=== PATIENT | male | born 1980 | race Caucasian/White ===

== ENCOUNTER 2024-07-12 15:56 | Inpatient (IN) | payer MEDICAID, SELFPAY ==
[2024-07-12 16:03] VITALS: BP 172/89; PULSE 65; RESP 18; TEMP 36.6; O2SAT 100; BMI 38.8
--- NOTE | 2024-07-12 16:21 | W.ED.GENADLT ---
HPI - General Adult General: Chief complaint: General Medical Stated complaint: med reaction Time Seen by Provider: 07/12/24 15:57 History of Present Illness: 44-year-old male presents emergency room with concerns of medication reaction. Patient has a known history of alcoholic liver cirrhosis was recently hospitalized had been started on lactulose. Hospitalized at [place] he states he has been taking all of his medications but not had a bowel movement the last 6 days denies any fever sweats or chills he is very very confused and disorientated contribute a lot of this to his medications. He is a former heavy drinker states he quit 20 to 21 days ago. Associated symptoms: Reports nausea; Deny chest pain, dyspnea, rash or vomiting Related Data Home Medications ?Medication ?Instructions ?Recorded ?Confirmed amlodipine 5 mg tablet 5 mg PO DAILY 07/12/24 07/12/24 bumetanide 1 mg tablet 1 mg PO DAILY 07/12/24 07/12/24 bumetanide 2 mg tablet 2 mg PO DAILY 07/12/24 07/12/24 carvedilol 3.125 mg tablet 3.125 mg PO BID 07/12/24 07/12/24 citalopram 20 mg tablet 20 mg PO DAILY 07/12/24 07/12/24 escitalopram oxalate 20 mg tablet 20 mg PO DAILY 07/12/24 07/12/24 ferrous sulfate 325 mg (65 mg 325 mg PO DAILY 07/12/24 07/12/24 iron) tablet (FeroSul) folic acid 1 mg tablet 1 mg PO DAILY 07/12/24 07/12/24 furosemide 80 mg tablet 80 mg PO DAILY 07/12/24 07/12/24 gabapentin 300 mg capsule 600 mg PO TID 07/12/24 07/12/24 magnesium oxide 400 mg (241.3 mg 400 mg PO BID 07/12/24 07/12/24 magnesium) tablet multivitamin 1 tab PO DAILY 07/12/24 07/12/24 naltrexone 50 mg tablet 50 mg PO DAILY 07/12/24 07/12/24 nifedipine 30 mg tablet,extended 30 mg PO DAILY 07/12/24 07/12/24 release 24 hr omeprazole 20 mg capsule,delayed 20 mg PO DAILY 07/12/24 07/12/24 release pantoprazole 40 mg tablet,delayed 40 mg PO DAILY 07/12/24 07/12/24 release potassium chloride 20 mEq 20 meq PO DAILY 07/12/24 07/12/24 tablet,extended release rifaximin 550 mg tablet (Xifaxan) 550 mg PO BID 07/12/24 07/12/24 risperidone 1 mg tablet 1 mg PO BID 07/12/24 07/12/24 spironolactone 25 mg tablet 100 mg PO DAILY 07/12/24 07/12/24 sucralfate 1 gram tablet 1 g PO BID 07/12/24 07/12/24 thiamine HCl (vitamin B1) 100 mg 100 mg PO DAILY 07/12/24 07/12/24 tablet trazodone 100 mg tablet 100 mg PO QPM 07/12/24 07/12/24 zinc sulfate 50 mg zinc (220 mg) 50 mg PO DAILY 07/12/24 07/12/24 tablet Allergies Allergy/AdvReac Type Severity Reaction Status Date / Time No Known Allergies Allergy Verified 07/12/24 16:09 Review of Systems Const: Denies: fever(s) or chills Card: Denies: chest pain Resp: Denies: dyspnea GI: Reports: nausea and constipation; Denies: abdominal pain or vomiting : Denies: dysuria, urinary frequency or urinary urgency Musc: Denies: neck pain or back pain Skin/Breast: Denies: rash Physical Exam Const: GENERAL APPEARANCE: cooperative ORIENTATION/CONSCIOUSNESS: Yes awake HENMT: COMMON NORMALS: normocephalic, atraumatic and hearing grossly normal bilaterally HEAD & SCALP: normocephalic and atraumatic Resp: COMMON NORMALS: normal respiratory effort, No retractions, No use of accessory muscles and clear to auscultation bilaterally AUSCULTATION: clear to auscultation bilaterally Cardio: COMMON NORMALS: regular rate, regular rhythm and No murmurs present (Cardio) RATE: regular rate RHYTHM: regular rhythm GI: INSPECTION: Yes abdominal distension AUSCULTATION: Yes normoactive bowel sounds PALPATION: No Tenderness to palpation present (GI), No Guarding due to palpation present (GI) and Yes Hepatomegaly present Extremity: COMMON NORMALS: normal to inspection, capillary refill normal, no clubbing, cyanosis or edema, no calf tenderness and no pedal edema NARRATIVE EXTREMITY EXAM: Asterixis Skin: COMMON NORMALS: no rashes or lesions noted GENERAL SKIN EXAM: no rashes or lesions noted Course Vital Signs: Vital signs: Vital Signs Temperature 97.8 F 07/12/24 16:03 Pulse Rate 65 07/12/24 16:03 Respiratory Rate 18 07/12/24 16:03 Blood Pressure 172/89 07/12/24 16:03 Pulse Oximetry 100 07/12/24 16:03 Oxygen Delivery Me thod Room Air 07/12/24 16:03 MDM - General Adult Medical Decision Making Patient has hepatic encephalopathy with an ammonia level of 179. He does have asterixis. He is also thrombocytopenic and anemic. T. bili is 1.9 mild elevation of his AST he had recent hospitalization in [place] will attempt to get the old records there is no sign of active bleeding discussed with hospitalist orders written Medical Records I reviewed the patient's medical records. Lab Data I reviewed the patient's lab results. 07/12/24 16:55 07/12/24 16:55 Radiology Impressions Chest X-Ray 07/12/24 16:59 IMPRESSION: No acute findings. Laboratory Results WBC 4.49 10^3/uL (3.29-11.43) 07/12/24 16:55 RBC 3.17 10^6/uL (3.85-5.65) L 07/12/24 16:55 Hgb 9.20 g/dL (11.27-16.99) L 07/12/24 16:55 Hct 28.6 % (37-53) L 07/12/24 16:55 MCV 90.2 fl (82-101) 07/12/24 16:55 MCH 29.0 pg (27-33) 07/12/24 16:55 MCHC 32.2 g/dL (30-55) 07/12/24 16:55 RDW 19.3 % (12.1-15.1) H 07/12/24 16:55 Plt Count 68 10^3/cmm (157-399) L 07/12/24 16:55 MPV Not Reportable 07/12/24 16:55 Neut % (Auto) 65.1 % 07/12/24 16:55 Lymph % (Auto) 18.5 % 07/12/24 16:55 [place] % (Auto) 13.4 % 07/12/24 16:55 Eos % (Auto) 2.4 % 07/12/24 16:55 Baso % (Auto) 0.4 % 07/12/24 16:55 Neut # (Auto) 2.92 10^3/uL (1.8-7.7) 07/12/24 16:55 Lymph # (Auto) 0.8 10^3/uL (0.8-4.8) 07/12/24 16:55 [place] # (Auto) 0.6 10^3/uL (0.2-0.9) 07/12/24 16:55 Eos # (Auto) 0.1 10^3/uL (0.0-0.8) 07/12/24 16:55 Baso # (Auto) 0.0 10^3/uL (0.0-0.1) 07/12/24 16:55 Nucleated RBC % (auto) 0 % 07/12/24 16:55 Nucleated RBCs # 0.0 /100WBC 07/12/24 16:55 Sodium 136 mmol/L (136-145) 07/12/24 16:55 Potassium 3.6 mmol/L (3.5-5.1) 07/12/24 16:55 Chloride 106 mmol/L (98-107) 07/12/24 16:55 Carbon Dioxide 22 mmol/L (22-29) 07/12/24 16:55 Anion Gap 11.6 (5-19) 07/12/24 16:55 BUN 11 mg/dL (6-20) 07/12/24 16:55 Creatinine 0.5 mg/dL (0.7-1.2) L 07/12/24 16:55 GFR Calculation 181.5 mL/min (90-130) H 07/12/24 16:55 Glucose 87 mg/dL (65-115) 07/12/24 16:55 Calculated Osmolality 281 mOsm/kg (285-295) L 07/12/24 16:55 Calcium 8.3 mg/dL (8.5-10.5) L 07/12/24 16:55 Total Bilirubin 1.9 mg/dL (0.15-1.2) H 07/12/24 16:55 AST 44 U/L (0-40) H 07/12/24 16:55 ALT 21 U/L (0-41) 07/12/24 16:55 Alkaline Phosphatase 121 U/L (40-130) 07/12/24 16:55 Ammonia 179 umol/L (16-60) H 07/12/24 16:55 Total Protein 5.6 g/dL (6.6-8.7) L 07/12/24 16:55 Albumin 2.9 g/dL (3.5-5.2) L 07/12/24 16:55 Globulin 2.7 g/dL (1.3-4.6) 07/12/24 16:55 Lipase 50 U/L (13-60) 07/12/24 16:55 All radiology interpretation(s) finalized by discharge Discharge Plan Discharge Patient Disposition: Admitted As Inpatient Clinical Impression: Acute hepatic encephalopathy, Anemia, Thrombocytopenia, Alcoholic cirrhosis of liver Condition: Stable Coding Level of Care Code ED Finance Broker for Gaurav Maradiaga
--- NOTE | 2024-07-12 16:59 | XRR_ITS ---
PROCEDURE INFORMATION: Exam: XR Chest Exam date and time: 07/12/2024 5:06 PM Age: 44 years old Clinical indication: Cough and dyspnea; Additional info: Dyspnea/cough TECHNIQUE: Imaging protocol: Radiologic exam of the chest. Views: 1 view. COMPARISON: No relevant prior studies available. FINDINGS: Lungs: Unremarkable. No consolidation. Pleural spaces: Unremarkable. No pleural effusion. No pneumothorax. Heart/Mediastinum: Unremarkable. No cardiomegaly. Bones/joints: Unremarkable. XR/XR chest 1V portable [id number] IMPRESSION: No acute findings.
[2024-07-12 17:05] LABS: Basophils % 0.4 %; Eosinophils # 0.1 10^3/uL (0.0-0.8); Eosinophils % 2.4 %; Hematocrit 28.6 % (37-53); Lymphocytes # 0.8 10^3/uL (0.8-4.8); Lymphocytes % 18.5 %; Mean Corpuscular HGB Conc 32.2 g/dL (30-55); Mean Corpuscular Volume 90.2 fl (82-101); Monocytes # 0.6 10^3/uL (0.2-0.9); Monocytes % 13.4 %; Neutrophils # 2.92 10^3/uL (1.8-7.7); Neutrophils % 65.1 %; Nucleated Red Blood Cells % 0 %; Platelet Count 68 10^3/cmm (157-399); Red Blood Count 3.17 10^6/uL (3.85-5.65); Red Cell Distribution Width 19.3 % (12.1-15.1); White Blood Count 4.49 10^3/uL (3.29-11.43)
--- NOTE | 2024-07-12 17:17 | ECG_ITS ---
[facility] Test Date: 2024-07-12 Pat Name: Dar Malone Department: Room: Gender: Male Education Supervisor: : 1980 Requested By: Nayan Adler Order Number: [id number] Elio MD: Jaron Caraballo M.D. Measurements Intervals [place] Rate: 75 P: 8 OH: 189 QRS: -5 QRSD: 96 T: -7 QT: 452 QTc: 506 Interpretive Statements SINUS RHYTHM PROLONGED QT INTERVAL No previous ECG available for comparison Electronically Signed On 07-14-2024 18:03:54 PASTE UP COPY CAMERA OPERATOR by Jaron Caraballo M.D. [email or web address]
[2024-07-12 17:26] LABS: Slide Review Slide Review Perform
[2024-07-12 17:34] LABS: Ammonia 179 umol/L (16-60)
[2024-07-12 17:35] LABS: Alanine Aminotransferase 21 U/L (0-41); Albumin Level 2.9 g/dL (3.5-5.2); Alkaline Phosphatase 121 U/L (40-130); Anion Gap 11.6 (5-19); Aspartate Amino Transferase 44 U/L (0-40); Blood Urea Nitrogen 11 mg/dL (6-20); Calcium 8.3 mg/dL (8.5-10.5); Carbon Dioxide 22 mmol/L (22-29); Chloride 106 mmol/L (98-107); Globulin 2.7 g/dL (1.3-4.6); Glomerular Filtration Rate 181.5 mL/min (90-130); Glucose 87 mg/dL (65-115); Lipase 50 U/L (13-60); Osmolality Calculated 281 mOsm/kg (285-295); Potassium 3.6 mmol/L (3.5-5.1); Sodium 136 mmol/L (136-145); Total Bilirubin 1.9 mg/dL (0.15-1.2); Total Protein 5.6 g/dL (6.6-8.7)
[2024-07-12 18:13] VITALS: BP 159/80; O2SAT 97
[2024-07-12 18:14] LABS: NT Pro B Type Natriuretic Pept 170 pg/mL (0-125)
--- NOTE | 2024-07-12 18:19 | CTR_ITS ---
PROCEDURE INFORMATION: Exam: CT Abdomen And Pelvis Without Contrast Exam date and time: 07/12/2024 7:05 PM Age: 44 years old Clinical indication: Bloating and constipation and nausea and vomiting and other: Swelling; Prior surgery; Surgery date: 6+ months; Surgery type: Gb/appy; Additional info: Abdominal distention TECHNIQUE: Imaging protocol: Computed tomography of the abdomen and pelvis without contrast. Radiation optimization: All CT scans at this facility use at least one of these dose optimization techniques: automated exposure control; mA and/or kV adjustment per patient size (includes targeted exams where dose is matched to clinical indication); or iterative reconstruction. COMPARISON: CR XR chest 1V portable [id number] 07/12/2024 5:06 PM RADIATION DOSE METRICS: Total DLP (mGy-cm): 1202.38 FINDINGS: Pleural spaces: Small to moderate-sized right-sided pleural effusion. Liver: There is a TIPS in place. Cirrhotic liver. Gallbladder and biliary ducts: The gallbladder is absent. Pancreas: Normal. No ductal dilation. Spleen: The spleen is enlarged measuring up to 14.3 cm in craniocaudal dimension. Adrenal glands: Normal. No mass. Kidneys and ureters: Normal. No hydronephrosis. Stomach and bowel: Unremarkable. No obstruction. No mucosal thickening. Appendix: The appendix is not visualized but there are no secondary signs of acute appendicitis. Intraperitoneal space: Unremarkable. No free air. No significant fluid collection. Vasculature: Extensive vascular varices in the upper abdomen. Lymph nodes: Unremarkable. No enlarged lymph nodes. Urinary bladder: Unremarkable as visualized. Reproductive: Unremarkable as visualized. Bones/joints: Unremarkable. No acute fracture. Soft tissues: Anasarca. CT/CT abdomen pelvis con [id number] IMPRESSION: 1. Small to moderate-sized right-sided pleural effusion. 2. Cirrhotic liver. Splenomegaly with upper abdominal varices consistent with portal hypertension. 3. Anasarca. 4. No bowel obstruction or inflammatory process associated with the bowel. 5. No free air or significant free fluid in the abdomen or pelvis. 6. The appendix is not visualized but there are no secondary signs of acute appendicitis.
--- NOTE | 2024-07-12 18:20 | ECG_ITS ---
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 Measurements Intervals [place] Rate: 73 P: -1 AR: 184 QRS: 3 QRSD: 101 T: -1 QT: 434 QTc: 481 Interpretive Statements SINUS RHYTHM Compared to ECG 07/12/2024 17:17:30 Prolonged QT interval no longer present Electronically Signed On 07-14-2024 18:03:47 APPLIQUER by Jaron Caraballo M.D. [email or web address] [id number]
--- NOTE | 2024-07-12 18:22 | PM.HP ---
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 Currently he is alert to person, to place and not to time he can follow commands his response times are quite slow, requires frequent redirection, reports being confused about his medications, does report nausea, no vomiting, no lightheadedness, no dizziness, Review of Systems Const: Reports: fatigue and malaise; Denies: fever(s) or chills Card: Denies: chest pain Resp: Reports: dyspnea GI: Reports: abdominal pain and nausea : Denies: flank pain Neuro: Denies: headache(s) Medications/Allergies Home Medications ?Medication ?Instructions ?Recorded ?Confirmed ?Last Taken ?Type amlodipine 5 mg tablet 5 mg PO DAILY 07/12/24 07/12/24 Unknown History bumetanide 1 mg tablet 1 mg PO DAILY 07/12/24 07/12/24 Unknown History bumetanide 2 mg tablet 2 mg PO DAILY 07/12/24 07/12/24 Unknown History carvedilol 3.125 mg tablet 3.125 mg PO BID 07/12/24 07/12/24 Unknown History citalopram 20 mg tablet 20 mg PO DAILY 07/12/24 07/12/24 Unknown History escitalopram oxalate 20 mg tablet 20 mg PO DAILY 07/12/24 07/12/24 Unknown History ferrous sulfate 325 mg (65 mg 325 mg PO DAILY 07/12/24 07/12/24 Unknown History iron) tablet (FeroSul) folic acid 1 mg tablet 1 mg PO DAILY 07/12/24 07/12/24 Unknown History furosemide 80 mg tablet 80 mg PO DAILY 07/12/24 07/12/24 Unknown History gabapentin 300 mg capsule 600 mg PO TID 07/12/24 07/12/24 Unknown History magnesium oxide 400 mg (241.3 mg 400 mg PO BID 07/12/24 07/12/24 Unknown History magnesium) tablet multivitamin 1 tab PO DAILY 07/12/24 07/12/24 Unknown History naltrexone 50 mg tablet 50 mg PO DAILY 07/12/24 07/12/24 Unknown History nifedipine 30 mg tablet,extended 30 mg PO DAILY 07/12/24 07/12/24 Unknown History release 24 hr omeprazole 20 mg capsule,delayed 20 mg PO DAILY 07/12/24 07/12/24 Unknown History release pantoprazole 40 mg tablet,delayed 40 mg PO DAILY 07/12/24 07/12/24 Unknown History release potassium chloride 20 mEq 20 meq PO DAILY 07/12/24 07/12/24 Unknown History tablet,extended release rifaximin 550 mg tablet (Xifaxan) 550 mg PO BID 07/12/24 07/12/24 Unknown History risperidone 1 mg tablet 1 mg PO BID 07/12/24 07/12/24 Unknown History spironolactone 25 mg tablet 100 mg PO DAILY 07/12/24 07/12/24 Unknown History sucralfate 1 gram tablet 1 g PO BID 07/12/24 07/12/24 Unknown History thiamine HCl (vitamin B1) 100 mg 100 mg PO DAILY 07/12/24 07/12/24 Unknown History tablet trazodone 100 mg tablet 100 mg PO QPM 07/12/24 07/12/24 Unknown History zinc sulfate 50 mg zinc (220 mg) 50 mg PO DAILY 07/12/24 07/12/24 Unknown History tablet Allergies Allergy/AdvReac Type Severity Reaction Status Date / Time No Known Allergies Allergy Verified 07/12/24 16:09 PFSH Acute PFSH: Medical History (Updated 07/12/24 @ 18:30 by Joe Varghese MD) History of esophageal varices History of alcoholism Surgical History (Updated 07/12/24 @ 18:25 by Joe Varghese MD) History of esophagogastroduodenoscopy (EGD) Family History (Updated 07/12/24 @ 18:26 by Joe Varghese MD) Mother Chronic kidney disease (CKD) Father Chronic kidney disease (CKD) Social History (Updated 07/12/24 @ 18:26 by Joe Varghese MD) Smoking and tobacco/nicotine status: never used tobacco/nicotine Alcohol intake: former Substance/Drug Use: never Vitals/I&O/Wt Last Vital Signs Temp 97.8 F 07/12/24 16:03 Pulse 65 07/12/24 16:03 Resp 18 07/12/24 16:03 BP 159/80 07/12/24 18:13 Pulse Ox 97 07/12/24 18:13 O2 Del Method Room Air 07/12/24 18:13 Weight last 48 hrs Weight 142.882 kg Physical Exam Const: COMMON NORMALS: no acute distress ORIENTATION/CONSCIOUSNESS: Yes awake, Yes oriented to person, Yes oriented to place and Yes confused; not oriented to time Eye: COMMON NORMALS: Equal, round and reactive pupils present Resp: COMMON NORMALS: normal respiratory effort, No retractions, No use of accessory muscles and clear to auscultation bilaterally AUSCULTATION: clear to auscultation bilaterally Cardio: COMMON NORMALS: no JVD, regular rate, regular rhythm, S1 normal heart sound present and S2 normal heart sound present RATE: regular rate RHYTHM: regular rhythm HEART SOUNDS: S1 normal heart sound present and S2 normal heart sound present GI: OTHER: Abdomen is soft, distended, no guarding, no rebound, rigidity Neuro: COMMON NORMALS: CN's II-XII intact bilaterally and moves all extremities Data 07/12/24 16:55 07/12/24 16:55 A&P Assessment and plan (1) Acute hepatic encephalopathy: (2) Alcoholic cirrhosis of liver: (3) Bilateral lower extremity edema: (4) Constipation: Plan Hepatic encephalopathy, ammonia level is 179 -Continue rifaximin -Lactulose 20 g every 6 hours -Monitor ammonia levels -Neurochecks -Aspiration precautions -CT head Complaints of constipation -CT abdomen without contrast -Lactulose Bilateral extremity edema -Lasix therapy Alcoholic liver cirrhosis -With acute anemia hemoglobin 9.2 -With thrombocytopenia -History of esophageal varices requiring band ligation -CT scan abdomen pelvis -CRP, Pro-Juan, blood cultures -He reports a history of paracentesis -Will start Rocephin 2 g IV every 24 hours for possible SBP Full code SCDs for DVT prophylaxis, Lovenox relatively contraindicated given history of esophageal varices PDMP PDMP Reviewed: Last Reviewed 07/12/24 18:11 by Joe Varghese MD Attestations Medical Necessity Statement*: Patient requires hospitalization, inpatient, greater than 2 midnights, for hepatic encephalopathy, weakness, fatigue, bilateral extremity edema Diagnoses Acute hepatic encephalopathy K76.82 Alcoholic cirrhosis of liver K70.30 Bilateral lower extremity edema R60.0 Constipation K59.00
[2024-07-12 18:28] LABS: Bilirubin Urine Negative (Negative); Blood Urine 1+ (Negative); Glucose Urine UA Negative (Normal); Ketones Urine Negative (Negative); Leukocyte Esterase Urine Negative (Negative); Nitrate Urine Negative (Negative); Protein Urine Negative (Negative); Specific Gravity, Urine 1.013 (1.005-1.030); Urine Appearance Clear (CLEAR); Urine Color Yellow (Yellow)
--- NOTE | 2024-07-12 18:33 | CTR_ITS ---
PROCEDURE INFORMATION: Exam: CT Head Without Contrast Exam date and time: 07/12/2024 7:00 PM Age: 44 years old Clinical indication: Altered mental status/memory loss; Additional info: AMS TECHNIQUE: Imaging protocol: Computed tomography of the head without contrast. Radiation optimization: All CT scans at this facility use at least one of these dose optimization techniques: automated exposure control; mA and/or kV adjustment per patient size (includes targeted exams where dose is matched to clinical indication); or iterative reconstruction. COMPARISON: No relevant prior studies available. RADIATION DOSE METRICS: Total DLP (mGy-cm): 1065.58 FINDINGS: Brain: Normal. No hemorrhage. Unremarkable white matter. No mass effect. Cerebral ventricles: No ventriculomegaly. Paranasal sinuses: Visualized sinuses are unremarkable. No fluid levels. Mastoid air cells: Visualized mastoid air cells are well aerated. Bones: Unremarkable. No acute fracture. Soft tissues: Unremarkable. CT/CT head wo con* [id number] IMPRESSION: No acute intracranial abnormality.
[2024-07-12 19:02] LABS: Lactic Sepsis W/Reflex 1.1 mmol/L (0.5-2.2); Troponin(5th) Baseline 24 ng/L (0-15)
[2024-07-12 19:09] LABS: Procalcitonin 0.07 ng/mL (0-0.5)
[2024-07-12 19:17] LABS: Add Urine Microscopic? YES; Bacteria Urine TRACE /hpf; RBC Urine 0-4 /hpf (0-2); UA Manual Slide Review YES; UA Slide Review UA Slide Review Perf
[2024-07-12 19:54] VITALS: BP 167/92; PULSE 63; RESP 15; O2SAT 96
[2024-07-12 20:40] VITALS: BP 178/94; PULSE 64; RESP 16; O2SAT 97
--- NOTE | 2024-07-12 22:25 | ECG_ITS ---
[facility] Test Date: 2024-07-12 Pat Name: Dar Malone Department: Room: ED Gender: Male Hospital Administrative Assistant: : 1980 Requested By: Joe Varghese Order Number: [id number] Ballard MD: Jaron Caraballo M.D. Measurements Intervals [place] Rate: 64 P: 24 OH: 172 QRS: -6 QRSD: 97 T: -17 QT: 467 QTc: 485 Interpretive Statements SINUS RHYTHM POSSIBLE LEFT VENTRICULAR HYPERTROPHY [VOLTAGE CRITERIA PLUS LAE OR QRS WIDENING] PROLONGED QT INTERVAL Compared to ECG 07/12/2024 18:42:52 Prolonged QT interval now present Electronically Signed On 07-14-2024 19:35:58 TABLET MAKING MACHINE OPERATOR HELPER by Jaron Caraballo M.D. [id number]
[2024-07-12] MEDS: pantoprazole 40 mg SDV IVP (23:01)
[2024-07-12] MEDS: TRAMadol 50 mg Tablet PO (23:01)
[2024-07-12] MEDS: lactulose oral liq 20 gm/30 mL UDC PO (23:01)
[2024-07-12] MEDS: cefTRIAXone 2,000 mg SDV 2000 MG IVP (23:01)
[2024-07-12] MEDS: FUROsemide 10 mg/mL SDV 4mL 40 MG IVP (23:02)
[2024-07-12] MEDS: ondansetron 2 mg/ML SDV 2 mL 4 MG IVP (23:02)
[2024-07-12 23:11] VITALS: BP 162/81; PULSE 69; O2SAT 98
[2024-07-12 23:18] LABS: Troponin 5 2HR 23.81 ng/L (0-15)
[2024-07-12 23:27] LABS: Chol HDL Ratio 2.28 mg/dL (1.0-5.00); Cholesterol 132 mg/dL (0-200); HDL Cholesterol 58 mg/dL (60-100); LDL Cholesterol Calculated 67 mg/dL (50-129); LDL HDL Ratio 1.16 RATIO (0.00-3.22); Thyroid Stimulating Hormone 0.88 uIU/mL (0.27-4.20); Triglycerides 35 mg/dL (0-150)
[2024-07-12 23:29] LABS: Troponin 5 2HR Delta -0.19 ABS# (0-10)
[2024-07-13] VITALS (14 sets, daily range): BP systolic 145–179; BP diastolic 73–94; PULSE 60–74; RESP 15–18; TEMP 36.5–37.2; O2SAT 93–98; BMI 39.3
[2024-07-13 00:10] LABS: Estmated Average Glucose 82; Hemoglobin A1C 4.5 % (4.0-6.0)
--- NOTE | 2024-07-13 00:20 | ECG_ITS ---
[facility] Test Date: 2024-07-13 Pat Name: Dar Malone Department: Room: ED Gender: Male Agricultural And Forestry Supervisor: : 1980 Requested By: Joe Varghese Order Number: [id number] Ballard MD: Jaron Caraballo M.D. Measurements Intervals [place] Rate: 59 P: 25 AL: 164 QRS: 58 QRSD: 98 T: 68 QT: 479 QTc: 475 Interpretive Statements SINUS BRADYCARDIA PROLONGED QT INTERVAL Compared to ECG 07/12/2024 22:29:51 Sinus rhythm no longer present Electronically Signed On 07-14-2024 19:35:10 YARN PACKER by Jaron Caraballo M.D. [id number]
[2024-07-13 01:26] LABS: Troponin 5 6HR 24.39 ng/L (0-15); Troponin 5 6HR Delta 0.39 ng/L (0-12)
[2024-07-13] MEDS: morphine 4 mg/mL SDV 1 mL 2 MG IVP (02:39)
[2024-07-13 04:23] LABS: Basophils % 0.2 %; Eosinophils # 0.1 10^3/uL (0.0-0.8); Eosinophils % 3.2 %; Hematocrit 27.9 % (37-53); Lymphocytes % 23.8 %; Mean Corpuscular HGB Conc 31.9 g/dL (30-55); Mean Corpuscular Hemoglobin 28.4 pg (27-33); Mean Corpuscular Volume 89.1 fl (82-101); Mean Platelet Volume 11.4 fL (7.4-10.4); Monocytes # 0.7 10^3/uL (0.2-0.9); Monocytes % 15.7 %; Neutrophils # 2.45 10^3/uL (1.8-7.7); Neutrophils % 56.9 %; Nucleated Red Blood Cells % 0 %; Platelet Count 73 10^3/cmm (157-399); Red Blood Count 3.13 10^6/uL (3.85-5.65); Red Cell Distribution Width 19.2 % (12.1-15.1); White Blood Count 4.32 10^3/uL (3.29-11.43)
[2024-07-13 04:45] LABS: Alanine Aminotransferase 16 U/L (0-41); Albumin Level 2.5 g/dL (3.5-5.2); Alkaline Phosphatase 108 U/L (40-130); Ammonia 159 umol/L (16-60); Anion Gap 11.3 (5-19); Aspartate Amino Transferase 36 U/L (0-40); Blood Urea Nitrogen 8 mg/dL (6-20); Calcium 7.9 mg/dL (8.5-10.5); Carbon Dioxide 22 mmol/L (22-29); Chloride 111 mmol/L (98-107); Globulin 2.9 g/dL (1.3-4.6); Glomerular Filtration Rate 181.5 mL/min (90-130); Glucose 98 mg/dL (65-115); Osmolality Calculated 290 mOsm/kg (285-295); Potassium 3.3 mmol/L (3.5-5.1); Sodium 141 mmol/L (136-145); Total Bilirubin 1.7 mg/dL (0.15-1.2); Total Protein 5.4 g/dL (6.6-8.7)
[2024-07-13 04:54] LABS: Slide Review Slide Review Perform
[2024-07-13] MEDS: lactulose oral liq 20 gm/30 mL UDC PO ×4 (05:07→23:23)
[2024-07-13] MEDS: ferrous sulfate EC 325 mg Tablet PO (08:27)
[2024-07-13] MEDS: spironolactone 25 mg Tablet 100 MG PO (08:27)
[2024-07-13] MEDS: thiamine 100 mg Tablet PO (08:27)
[2024-07-13] MEDS: rifaximin 200 mg Tablet 600 MG PO ×2 (08:27→17:32)
[2024-07-13] MEDS: citalopram 20 mg Tablet PO (08:27)
[2024-07-13] MEDS: zinc gluconate 50 mg Tablet PO (08:27)
[2024-07-13] MEDS: folic acid 1 mg Tablet PO (08:27)
[2024-07-13] MEDS: NIFEdipine ER (24 hr) 30 mg Tablet PO (08:28)
--- NOTE | 2024-07-13 10:12 | PC.CHAP ---
Pastoral Care Encounter/Spiritual Assessment Type of Contact [] Declined clerical supervisor visit [] Patient/Family/Request visit [] Outpatient visit [] Follow-up visit [] Physician referral [] Code/Alert [x] Routine visit [] Staff referral [] Actively dying [] Patient sleeping [] Family support [] [] Out of room [] Palliative care [] [] Receiving care in room [] Pre-surgical visit [] Trauma [] Long length of stay [] ICU visit [] Other: Relational/Emotional Strength [x] Patient feels connected with others/family/visitors/staff [] Distress [] Loneliness/isolation [] Abandonment Spirituality of Patient [x] Person of Debra [] Attends Presybeterian of their Debra [x] Believes in Prayer [] Reads Bible or Sabianism materials [] There are Spiritual issues to be addressed Commercial Title Examiner Interventions [x] Prayer [x] Active listening [] Non-anxious presence [x] Spiritual/emotional support [] Crisis/trauma care [] Spiritual counseling [] Bereavement support [] Provided bereavement packet [] Provided Bible/devotional materials [] Provided toy/stuffed animal, coloring book to patient or family member [] Provided Communion [] Anointing/[place] [] Salvation [x] Completed spiritual assessment [] Other: Impact on Illness or Injury [] Angry [] Fearful [] Anxious [] Often cries [] Exhaustion [] Unable to work [] Unable to attend orthodox [] Unable to walk/stand [] Unable to read [] Unable to drive [] Unable to eat/drink [] Unable to sleep [] Unable to be with family [] Patient intubated [] Other: Summary Time spent with patient 5 min
--- NOTE | 2024-07-13 10:33 | USCV_ITS ---
Dar Malone Age: 44 Gender: M : 1980 Exam Date: 07/13/2024 11:12 Ordering Phys: Joe Varghese MD Technologist: Exam Location: [facility] [place] Indication: BP: 130 / 75 HR: 65 Rhythm: Sinus Technical Quality: Adequate MEASUREMENTS (Male / Female) Normal Values 2D ECHO LVOT Diameter 2.0 cm LV Ejection Fraction MOD 4C 74.3 % LV Ejection Fraction MOD 2C 70.6 % LV Ejection Fraction 2C AL 72.2 % LA Diameter 3.9 cm RA Systolic Volume 4C AL 47.3 ml RA Systolic Volume 4C MOD 45.4 ml Aorta at Sinotubular Diameter 3.3 cm M-MODE LA Ao Ratio MM 1.2 AV Cusp Separation MM 2.7 cm DOPPLER AV Peak Velocity 146.0 cm/s LVOT Peak Velocity 110.0 cm/s AV Area Cont Eq vti 2.5 cm squared AV Area Cont Eq pk 2.4 cm squared MV Peak Velocity 136.0 cm/s MV Area PHT 4.0 cm squared Mitral E to A Ratio 1.8 TV Peak Velocity 171.0 cm/s TR Peak Velocity 179.0 cm/s TR Peak Gradient 12.8 mmHg TV Peak E Velocity 100.0 cm/s PV Peak Velocity 119.0 cm/s FINDINGS Left Ventricle Left ventricle is normal in size. LV systolic function is normal with EF of 55-60%. No regional wall motion abnormalities are seen Right Ventricle Normal in size and function Right Atrium Normal in size Left Atrium Dilated Mitral Valve Structurally normal mitral valve. Trace regurgitation. Aortic Valve Structurally normal aortic valve. No significant stenosis or regurgitation. Tricuspid Valve Insufficient TR jet to calculate RVSP. Pulmonic Valve Not well visualized Pericardium Normal Aorta Normal in size IVC Not visualized CONCLUSIONS LV systolic function is normal with EF of 55 to 60%. Left atrial dilation. Trace mitral regurgitation. No comparison studies are available Jaron Caraballo MD (Electronically Signed) Final Date: 14 July 2024 11:51 S
[2024-07-13] MEDS: potassium chloride ER 20 mEq Tablet 40 MEQ PO (11:25)
[2024-07-13] MEDS: FUROsemide 10 mg/mL SDV 4mL 40 MG IVP ×2 (11:25→23:23)
[2024-07-13] MEDS: naltrexone hcl 50 mg Tablet PO (11:30)
--- NOTE | 2024-07-13 14:46 | P.PN_ITS ---
Subjective 2 Subjective: Patient was seen this morning, he is alert oriented x 3, following all commands, did have a bowel movement overnight, he continues to have edema bilateral lower extremities Vitals/I&O/Wt Last Vital Signs Temp 98.0 F 07/13/24 11:58 Pulse 66 07/13/24 11:58 Resp 15 07/13/24 11:58 BP 160/87 07/13/24 11:58 Pulse Ox 97 07/13/24 11:58 O2 Del Method Room Air 07/13/24 11:58 07/12/24 07/13/24 07/13/24 22:59 06:59 14:59 Intake Total 480 / 480 820 / 820 Output Total 1800 / 1800 600 / 600 Balance -1320 / -1320 220 / 220 Weight last 48 hrs Weight 144.696 kg Weight 144.696 kg Weight 142.882 kg Physical Exam 2 Const: COMMON NORMALS: no acute distress and patient oriented x3 Resp: COMMON NORMALS: normal respiratory effort, No retractions, No use of accessory muscles and clear to auscultation bilaterally AUSCULTATION: clear to auscultation bilaterally Cardio: COMMON NORMALS: regular rate, regular rhythm, S1 normal heart sound present and S2 normal heart sound present RATE: regular rate RHYTHM: r egular rhythm HEART SOUNDS: S1 normal heart sound present and S2 normal heart sound present GI: COMMON NORMALS: Normal to inspection, nondistended, normoactive bowel sounds present and non-tender Extremity: NARRATIVE EXTREMITY EXAM: 2+ pitting edema Neuro: COMMON NORMALS: patient oriented x3 Psych: COMMON NORMALS: mental status grossly normal Data 07/13/24 04:11 07/13/24 04:11 Micro: Microbiology 07/12/24 22:39 Blood Culture - Preliminary Blood SPECIMEN COLLECTED 07/12/24 22:49 Blood Culture - Preliminary Blood SPECIMEN COLLECTED A&P Assessment and plan (1) Acute hepatic encephalopathy: (2) Alcoholic cirrhosis of liver: (3) Bilateral lower extremity edema: (4) Constipation: Plan Hepatic encephalopathy, ammonia level is 159 -Continue rifaximin -Lactulose 20 g every 6 hours -Monitor ammonia levels -Neurochecks -Aspiration precautions -CT head no acute findings Complaints of constipation -CT abdomen without contrast CT/CT abdomen pelvis wo con [id number] IMPRESSION: 1. Small to moderate-sized right-sided pleural effusion. 2. Cirrhotic liver. Splenomegaly with upper abdominal varices consistent with portal hypertension. 3. Anasarca. 4. No bowel obstruction or inflammatory process associated with the bowel. 5. No free air or significant free fluid in the abdomen or pelvis. 6. The appendix is not visualized but there are no secondary signs of acute appendicitis. -Lactulose Bilateral extremity edema, bilateral pleural effusions -Lasix therapy today Alcoholic liver cirrhosis -With acute anemia hemoglobin 9.2 -With thrombocytopenia -History of esophageal varices requiring band ligation -CT scan abdomen pelvis -CRP, Pro-Juan, blood cultures -He reports a history of paracentesis -Will start Rocephin 2 g IV every 24 hours for possible SBP Full code SCDs for DVT prophylaxis, Lovenox relatively contraindicated given history of esophageal varices Patient requires hospitalization for fluid overload requiring IV diuresis, PDMP PDMP Reviewed: Last Reviewed 07/12/24 18:11 by Joe Varghese MD Attestations 2 Medical Necessity Statement*: Patient requires hospitalization for bilateral edema, bilateral pleural effusions Diagnoses Acute hepatic encephalopathy K76.82 Alcoholic cirrhosis of liver K70.30 Bilateral lower extremity edema R60.0 Constipation K59.00
[2024-07-13] MEDS: morphine 4 mg/mL SDV 1 mL 1 MG IVP ×2 (15:23→23:24)
[2024-07-13] MEDS: trazodone 100 mg Tablet PO (17:32)
[2024-07-13] MEDS: cefTRIAXone 2,000 mg SDV 2000 MG IVP (23:23)
[2024-07-13] MEDS: pantoprazole 40 mg SDV IVP (23:24)
[2024-07-14] VITALS (11 sets, daily range): BP systolic 121–194; BP diastolic 67–78; PULSE 63–75; RESP 15–18; TEMP 36.4–36.9; O2SAT 94–97
[2024-07-14 03:09] LABS: Basophils % 0.6 %; Eosinophils # 0.2 10^3/uL (0.0-0.8); Eosinophils % 3.2 %; Hematocrit 26.6 % (37-53); Lymphocytes # 1.2 10^3/uL (0.8-4.8); Lymphocytes % 25.5 %; Mean Corpuscular HGB Conc 31.2 g/dL (30-55); Mean Corpuscular Hemoglobin 27.8 pg (27-33); Monocytes # 0.7 10^3/uL (0.2-0.9); Monocytes % 14.5 %; Neutrophils # 2.63 10^3/uL (1.8-7.7); Nucleated Red Blood Cells % 0 %; Platelet Count 69 10^3/cmm (157-399); Red Blood Count 2.99 10^6/uL (3.85-5.65); Red Cell Distribution Width 19.7 % (12.1-15.1)
[2024-07-14 03:20] LABS: Mean Platelet Volume 9.1 fL (7.4-10.4)
[2024-07-14 03:26] LABS: Alanine Aminotransferase 15 U/L (0-41); Albumin Level 2.5 g/dL (3.5-5.2); Alkaline Phosphatase 114 U/L (40-130); Anion Gap 11.4 (5-19); Aspartate Amino Transferase 31 U/L (0-40); Blood Urea Nitrogen 8 mg/dL (6-20); Calcium 8.1 mg/dL (8.5-10.5); Carbon Dioxide 23 mmol/L (22-29); Chloride 107 mmol/L (98-107); Globulin 2.6 g/dL (1.3-4.6); Glomerular Filtration Rate 123.1 mL/min (90-130); Glucose 98 mg/dL (65-115); Osmolality Calculated 284 mOsm/kg (285-295); Potassium 3.4 mmol/L (3.5-5.1); Sodium 138 mmol/L (136-145); Total Bilirubin 1.3 mg/dL (0.15-1.2); Total Protein 5.1 g/dL (6.6-8.7)
[2024-07-14 03:27] LABS: Ammonia 113 umol/L (16-60)
[2024-07-14] MEDS: lactulose oral liq 20 gm/30 mL UDC PO ×4 (04:21→22:00)
--- NOTE | 2024-07-14 08:31 | USR_ITS ---
PROCEDURE INFORMATION: Exam: US Duplex Lower Extremity Veins, Bilateral Exam date and time: 07/14/2024 10:04 AM Age: 44 years old Clinical indication: Edema, localized; Upper extremity, right; Additional info: Swelling TECHNIQUE: Imaging protocol: Real-time duplex ultrasound of the bilateral extremities with 2-D reaves scale, color Doppler flow and spectral waveform analysis including responses to compression and other maneuvers (when performed) with image documentation. Complete exam focused on the lower extremity veins. COMPARISON: CT abdomen pelvis wo con [id number] 07/12/2024 7:05 PM FINDINGS: Right deep veins: Unremarkable. The common femoral, femoral, proximal profunda femoral and popliteal veins are patent without thrombus. Normal Doppler waveforms. Normal compressibility and/or augmentation response. Left deep veins: Unremarkable. The common femoral, femoral, proximal profunda femoral and popliteal veins are patent without thrombus. Normal Doppler waveforms. Normal compressibility and/or augmentation response. Superficial veins: Greater saphenous veins at the saphenofemoral junctions are patent bilaterally without thrombus. Soft tissues: Unremarkable. US/CV venous duplex [facility] [id number] IMPRESSION: No evidence of deep vein thrombosis.
[2024-07-14] MEDS: potassium chloride ER 20 mEq Tablet 40 MEQ PO (09:17)
[2024-07-14] MEDS: thiamine 100 mg Tablet PO (09:18)
[2024-07-14] MEDS: rifaximin 200 mg Tablet 600 MG PO ×2 (09:18→17:25)
[2024-07-14] MEDS: naltrexone hcl 50 mg Tablet PO (09:18)
[2024-07-14] MEDS: NIFEdipine ER (24 hr) 30 mg Tablet PO (09:18)
[2024-07-14] MEDS: zinc gluconate 50 mg Tablet PO (09:19)
[2024-07-14] MEDS: ferrous sulfate EC 325 mg Tablet PO (09:19)
[2024-07-14] MEDS: folic acid 1 mg Tablet PO (09:19)
[2024-07-14] MEDS: spironolactone 25 mg Tablet 100 MG PO (09:19)
[2024-07-14] MEDS: citalopram 20 mg Tablet PO (09:19)
[2024-07-14] MEDS: FUROsemide 10 mg/mL SDV 4mL 40 MG IVP ×2 (09:19→21:57)
--- NOTE | 2024-07-14 14:58 | P.PN_ITS ---
Subjective 2 Subjective: Patient was seen this morning continues to have lower extremity edema no chest pain, palpitations, no shortness of breath Vitals/I&O/Wt Last Vital Signs Temp 98.2 F 07/14/24 12:05 Pulse 64 07/14/24 12:05 Resp 15 07/14/24 12:05 BP 194/73 07/14/24 12:05 Pulse Ox 97 07/14/24 12:05 O2 Del Method Room Air 07/14/24 12:05 07/13/24 07/14/24 07/14/24 22:59 06:59 14:59 Intake Total 240 / 1060 480 / 480 Output Total 200 / 800 Balance 240 / 460 -200 / 260 480 / 480 Weight last 48 hrs Weight 143.607 kg Weight 144.696 kg Weight 144.696 kg Weight 142.882 kg Physical Exam 2 Const: COMMON NORMALS: no acute distress and patient oriented x3 Resp: COMMON NORMALS: normal respiratory effort, No retractions, No use of accessory muscles and clear to auscultation bilaterally AUSCULTATION: clear to auscultation bilaterally Cardio: COMMON NORMALS: regular rate, regular rhythm, S1 normal heart sound present and S2 normal heart sound present RATE: regular rate RHYTHM: r egular rhythm HEART SOUNDS: S1 normal heart sound present and S2 normal heart sound present GI: COMMON NORMALS: Normal to inspection, nondistended, normoactive bowel sounds present and non-tender Extremity: COMMON NORMALS: no pedal edema Neuro: COMMON NORMALS: patient oriented x3 Psych: COMMON NORMALS: mental status grossly normal Data 07/14/24 02:42 07/14/24 02:42 Micro: Microbiology 07/12/24 22:39 Blood Culture - Preliminary Blood NEGATIVE TO DATE 07/12/24 22:49 Blood Culture - Preliminary Blood NEGATIVE TO DATE A&P Assessment and plan (1) Acute hepatic encephalopathy: (2) Alcoholic cirrhosis of liver: (3) Bilateral lower extremity edema: (4) Constipation: Plan Hepatic encephalopathy, ammonia level is 113 -Continue rifaximin -Lactulose 20 g every 6 hours -Monitor ammonia levels -Neurochecks -Aspiration precautions -CT head no acute findings Complaints of constipation -CT abdomen without contrast CT/CT abdomen pelvis wo con [id number] IMPRESSION: 1. Small to moderate-sized right-sided pleural effusion. 2. Cirrhotic liver. Splenomegaly with upper abdominal varices consistent with portal hypertension. 3. Anasarca. 4. No bowel obstruction or inflammatory process associated with the bowel. 5. No free air or significant free fluid in the abdomen or pelvis. 6. The appendix is not visualized but there are no secondary signs of acute appendicitis. -Lactulose Bilateral extremity edema, bilateral pleural effusions -Lasix therapy today Alcoholic liver cirrhosis -With acute anemia hemoglobin 9.2 -With thrombocytopenia -History of esophageal varices requiring band ligation -CT scan abdomen pelvis -CRP, Pro-Juan, blood cultures -He reports a history of paracentesis -Will start Rocephin 2 g IV every 24 hours for possible SBP Full code SCDs for DVT prophylaxis, Lovenox relatively contraindicated given history of esophageal varices Patient requires hospitalization for fluid overload requiring IV diuresis, PDMP PDMP Reviewed: Last Reviewed 07/12/24 18:11 by Joe Varghese MD Attestations 2 Medical Necessity Statement*: Patient requires hospitalization for fluid overload requiring IV diuresis Diagnoses Acute hepatic encephalopathy K76.82 Alcoholic cirrhosis of liver K70.30 Bilateral lower extremity edema R60.0 Constipation K59.00
[2024-07-14] MEDS: morphine 4 mg/mL SDV 1 mL 1 MG IVP (19:40)
[2024-07-14] MEDS: cefTRIAXone 2,000 mg SDV 2000 MG IVP (21:57)
[2024-07-14] MEDS: pantoprazole 40 mg SDV IVP (21:57)
[2024-07-14] MEDS: trazodone 100 mg Tablet PO (21:57)
[2024-07-15] VITALS: BP 125/66; PULSE 67; RESP 15; TEMP 36.8; O2SAT 91
[2024-07-15 04:00] VITALS: BP 128/66; PULSE 72; RESP 18; TEMP 36.7; O2SAT 90
[2024-07-15] MEDS: lactulose oral liq 20 gm/30 mL UDC PO ×2 (04:23→11:12)
[2024-07-15 05:02] LABS: Alanine Aminotransferase 17 U/L (0-41); Albumin Level 2.5 g/dL (3.5-5.2); Alkaline Phosphatase 115 U/L (40-130); Blood Urea Nitrogen 10 mg/dL (6-20); Calcium 8.2 mg/dL (8.5-10.5); Carbon Dioxide 21 mmol/L (22-29); Chloride 107 mmol/L (98-107); Globulin 2.7 g/dL (1.3-4.6); Glomerular Filtration Rate 123.1 mL/min (90-130); Glucose 101 mg/dL (65-115); Osmolality Calculated 287 mOsm/kg (285-295); Sodium 139 mmol/L (136-145); Total Protein 5.2 g/dL (6.6-8.7)
[2024-07-15 05:06] LABS: Anion Gap 14.8 (5-19); Aspartate Amino Transferase 44 U/L (0-40); Potassium 3.8 mmol/L (3.5-5.1)
[2024-07-15 08:00] VITALS: BP 129/73; PULSE 73; RESP 17; TEMP 36.7; O2SAT 93
[2024-07-15] MEDS: citalopram 20 mg Tablet PO (08:46)
[2024-07-15] MEDS: spironolactone 25 mg Tablet 100 MG PO (08:46)
[2024-07-15] MEDS: folic acid 1 mg Tablet PO (08:47)
[2024-07-15] MEDS: zinc gluconate 50 mg Tablet PO (08:47)
[2024-07-15] MEDS: naltrexone hcl 50 mg Tablet PO (08:47)
[2024-07-15] MEDS: ferrous sulfate EC 325 mg Tablet PO (08:47)
[2024-07-15] MEDS: NIFEdipine ER (24 hr) 30 mg Tablet PO (08:47)
[2024-07-15] MEDS: thiamine 100 mg Tablet PO (08:47)
[2024-07-15 08:48] LABS: Ammonia 107 umol/L (16-60)
[2024-07-15 11:11] VITALS: BP 157/63; PULSE 70; RESP 17; TEMP 36.7; O2SAT 92
[2024-07-15] MEDS: FUROsemide 10 mg/mL SDV 4mL 40 MG IVP (11:12)
[2024-07-15] MEDS: rifaximin 200 mg Tablet 600 MG PO (11:12)
--- NOTE | 2024-07-15 11:30 | PM.DCS ---
Discharge Providers Date of Admission: 07/12/24 20:17 Date of Discharge: July 15, 2024 Attending Provider at Admission: Joe Varghese MD Attending Provider at Discharge: Joe Varghese MD Primary Care Provider: CINTHIA Ontiveros Diagnoses at Discharge Discharge Diagnosis (1) Acute hepatic encephalopathy: Status: Acute (2) Alcoholic cirrhosis of liver: Status: Acute (3) Bilateral lower extremity edema: Status: Acute (4) Constipation: Status: Acute Reason for Visit Reason for Visit: med reaction Hospital Course Hospital Course Dar Malone is a 44 year old male with a past medical history of alcoholic liver cirrhosis, 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 Currently he is alert to person, to place and not to time he can follow commands his response times are quite slow, requires frequent redirection, reports being confused about his medications, does report nausea, no vomiting, no lightheadedness, no dizziness, Patient was admitted to [facility] for hepatic encephalopathy, ammonia levels 179, he received inpatient rifaximin, lactulose, overall mentation has improved, he is alert oriented x 3, following all commands, no headache, blurry vision, ambulating without any significant dermatology. Although his ammonia levels are 107, he is relatively asymptomatic we will discharge him on rifaximin, lactulose at 30 g 3 times daily, with a close follow-up with his GI physician in [place] Patient's hospitalization was complicated with bilateral lower edema, bilateral pleural effusions, evidence of diastolic CHF received IV diuresis, overall clinically improved. Will be discharged on Lasix 40 mg twice daily with potassium placement therapy, with close follow-up with primary care provider and cardiology as outpatient For his alcoholic liver cirrhosis, there was initial concern for spontaneous bacterial peritonitis, felt to be unlikely, CT scan as below, follow-up with GI physician as outpatient CT/CT abdomen pelvis wo con [id number] IMPRESSION: 1. Small to moderate-sized right-sided pleural effusion. 2. Cirrhotic liver. Splenomegaly with upper abdominal varices consistent with portal hypertension. 3. Anasarca. 4. No bowel obstruction or inflammatory process associated with the bowel. 5. No free air or significant free fluid in the abdomen or pelvis. 6. The appendix is not visualized but there are no secondary signs of acute appendicitis. Physical Exam Const: COMMON NORMALS: no acute distress and patient oriented x3 Resp: COMMON NORMALS: normal respiratory effort, No retractions, No use of accessory muscles and clear to auscultation bilaterally AUSCULTATION: clear to auscultation bilaterally Cardio: COMMON NORMALS: regular rate, regular rhythm, S1 normal heart sound present and S2 normal heart sound present RATE: regular rate RHYTHM: regular rhythm HEART SOUNDS: S1 normal heart sound present and S2 normal heart sound present GI: COMMON NORMALS: Normal to inspection, nondistended, normoactive bowel sounds present and non-tender Extremity: COMMON NORMALS: no pedal edema Neuro: COMMON NORMALS: patient oriented x3, CN's II-XII intact bilaterally and moves all extremities Psych: COMMON NORMALS: mental status grossly normal Discharge Data Studies Completed and Pending Completed Studies During Hospitalization Category Date Time Status CT abdomen pelvis wo con [id number] Stat Cat Scan 07/12/24 18:[address] head wo con* [id number] Stat Cat Scan 07/12/24 18:33 Completed XR chest 1V portable [id number] Stat Exams 07/12/24 16:59 [place] [id number] Routine Ultrasound 07/14/24 08:31 Completed CV. echo complete* [id number] Routine Ultrasound 07/13/24 10:33 Completed Pending at discharge Category Date Time Status Blood Culture Routine Lab 07/12/24 22:39 Results Radiology Impressions Chest X-Ray 07/12/24 16:59 IMPRESSION: No acute findings. Abdomen/Pelvis CT 07/12/24 18:19 IMPRESSION: 1. Small to moderate-sized right-sided pleural effusion. 2. Cirrhotic liver. Splenomegaly with upper abdominal varices consistent with portal hypertension. 3. Anasarca. 4. No bowel obstruction or inflammatory process associated with the bowel. 5. No free air or significant free fluid in the abdomen or pelvis. 6. The appendix is not visualized but there are no secondary signs of acute appendicitis. Head CT 07/12/24 18:33 IMPRESSION: No acute intracranial abnormality. Venous Duplex 07/14/24 08:31 IMPRESSION: No evidence of deep vein thrombosis. Laboratory Results WBC Cancelled 07/15/24 08:20 Corrected WBC Cancelled 07/15/24 08:20 RBC Cancelled 07/15/24 08:20 Hgb Cancelled 07/15/24 08:20 Hct Cancelled 07/15/24 08:20 MCV Cancelled 07/15/24 08:20 MCH Cancelled 07/15/24 08:20 MCHC Cancelled 07/15/24 08:20 RDW Cancelled 07/15/24 08:20 Plt Count Cancelled 07/15/24 08:20 MPV Cancelled 07/15/24 08:20 Gran % Cancelled 07/15/24 08:20 Neut % (Auto) Cancelled 07/15/24 08:20 Lymph % (Auto) Cancelled 07/15/24 08:20 Bath % (Auto) Cancelled 07/15/24 08:20 Eos % (Auto) Cancelled 07/15/24 08:20 Baso % (Auto) Cancelled 07/15/24 08:20 Neut # (Auto) Cancelled 07/15/24 08:20 Lymph # (Auto) Cancelled 07/15/24 08:20 Bath # (Auto) Cancelled 07/15/24 08:20 Eos # (Auto) Cancelled 07/15/24 08:20 Baso # (Auto) Cancelled 07/15/24 08:20 Absolute Gran (auto) Cancelled 07/15/24 08:20 Nucleated RBC % (auto) Cancelled 07/15/24 08:20 Nucleated RBCs # Cancelled 07/15/24 08:20 PT 18.10 SECONDS (12.1-14.9) H 07/12/24 19:19 INR 1.40 (0.8-1.2) H 07/12/24 19:19 Sodium 139 mmol/L (136-145) 07/15/24 03:14 Potassium 3.8 mmol/L (3.5-5.1) 07/15/24 03:14 Chloride 107 mmol/L (98-107) 07/15/24 03:14 Carbon Dioxide 21 mmol/L (22-29) L 07/15/24 03:14 Anion Gap 14.8 (5-19) 07/15/24 03:14 BUN 10 mg/dL (6-20) 07/15/24 03:14 Creatinine 0.7 mg/dL (0.7-1.2) 07/15/24 03:14 GFR Calculation 123.1 mL/min (90-130) 07/15/24 03:14 Glucose 101 mg/dL (65-115) 07/15/24 03:14 Estimat Average Glucose 82 07/12/24 22:49 Hemoglobin A1c 4.5 % (4.0-6.0) 07/12/24 22:49 Calculated Osmolality 287 mOsm/kg (285-295) 07/15/24 03:14 Lactic Acid 1.1 mmol/L (0.5-2.2) 07/12/24 16:55 Calcium 8.2 mg/dL (8.5-10.5) L 07/15/24 03:14 Total Bilirubin 1.0 mg/dL (0.15-1.2) 07/15/24 03:14 AST 44 U/L (0-40) H 07/15/24 03:14 ALT 17 U/L (0-41) 07/15/24 03:14 Alkaline Phosphatase 115 U/L (40-130) 07/15/24 03:14 Ammonia 107 umol/L (16-60) H 07/15/24 08:20 Troponin T Baseline 24 ng/L (0-15) H 07/12/24 16:55 Troponin T 120 Minute 23.81 ng/L (0-15) H 07/12/24 22:49 Delta Troponin T -0.19 ABS# (0-10) L 07/12/24 22:49 Troponin T Hi Sens 6Hr 24.39 ng/L (0-15) H 07/13/24 00:59 Troponin T Hi Sens 6Hr Delta 0.39 ng/L (0-12) 07/13/24 00:59 C-Reactive Protein 3.0 mg/L (0.0-4.9) 07/12/24 16:55 NT-Pro-B Natriuret Pep 170 pg/mL (0-125) H 07/12/24 16:55 Total Protein 5.2 g/dL (6.6-8.7) L 07/15/24 03:14 Albumin 2.5 g/dL (3.5-5.2) L 07/15/24 03:14 Globulin 2.7 g/dL (1.3-4.6) 07/15/24 03:14 Triglycerides 35 mg/dL (0-150) 07/12/24 22:49 Cholesterol 132 mg/dL (0-200) 07/12/24 22:49 LDL Cholesterol, Calc 67 mg/dL (50-129) 07/12/24 22:49 HDL Cholesterol 58 mg/dL (60-100) L 07/12/24 22:49 LDL/HDL Ratio 1.16 RATIO (0.00-3.22) 07/12/24 22:49 Cholesterol/HDL Ratio 2.28 mg/dL (1.0-5.00) 07/12/24 22:49 Lipase 50 U/L (13-60) 07/12/24 16:55 Procalcitonin 0.07 ng/mL (0-0.5) 07/12/24 16:55 TSH 0.88 uIU/mL (0.27-4.20) 07/12/24 22:49 Urine Color Yellow (Yellow) 07/12/24 18:15 Urine Appearance Clear (CLEAR) 07/12/24 18:15 Urine pH 7.0 (5-7) 07/12/24 18:15 Ur Specific [place] 1.013 (1.005-1.030) 07/12/24 18:15 Urine Protein Negative (Negative) 07/12/24 18:15 Urine Glucose (UA) Negative (Normal) 07/12/24 18:15 Urine Ketones Negative (Negative) 07/12/24 18:15 Urine Blood 1+ (Negative) A 07/12/24 18:15 Urine Nitrate Negative (Negative) 07/12/24 18:15 Urine Bilirubin Negative (Negative) 07/12/24 18:15 Urine Urobilinogen 1.0 mg/dL (Negative) 07/12/24 18:15 Ur Leukocyte Esterase Negative (Negative) 07/12/24 18:15 Urine RBC 0-4 /hpf (0-2) H 07/12/24 18:15 Urine WBC None /hpf (0-5) 07/12/24 18:15 Ur Squamous Epith Cells None /hpf (0-5) 07/12/24 18:15 Amorphous Sediment Not Reportable 07/12/24 18:15 Urine Bacteria Trace /hpf (NONE) 07/12/24 18:15 Vitals Last Vital Signs Temp 98.1 F 07/15/24 11:11 Pulse 70 07/15/24 11:11 Resp 17 07/15/24 11:11 BP 157/63 07/15/24 11:11 Pulse Ox 92 07/15/24 11:11 O2 Del Method Room Air 07/15/24 11:11 Discharge Plan Discharge Patient Disposition: Home Condition: Stable Prescriptions: New furosemide [Lasix] 40 mg tablet 40 mg PO BID 30 Days Qty: 60 0RF lactulose 10 gram/15 mL solution 30 g PO TID 30 Days Qty: 4050 0RF Rx Instructions: can adjust dose every 2 days, by decreasing to twice daily or then to once daily, to achieve 2-3 soft bowel movements a day Continued multivitamin Tablet 1 tab PO DAILY nifedipine 30 mg tablet extended release 24hr 30 mg PO DAILY sucralfate 1 gram tablet 1 g PO BID naltrexone 50 mg tablet 50 mg PO DAILY thiamine HCl (vitamin B1) 100 mg tablet 100 mg PO DAILY spironolactone 25 mg tablet 100 mg PO DAILY carvedilol 3.125 mg tablet 3.125 mg PO BID zinc sulfate 50 mg zinc (220 mg) tablet 50 mg PO DAILY citalopram 20 mg tablet 20 mg PO DAILY magnesium oxide 400 mg (241.3 mg magnesium) tablet 400 mg PO BID trazodone 100 mg tablet 100 mg PO QPM pantoprazole 40 mg tablet,delayed release (DR/EC) 40 mg PO DAILY ferrous sulfate [FeroSul] 325 mg (65 mg iron) tablet 325 mg PO DAILY gabapentin 300 mg capsule 600 mg PO TID omeprazole 20 mg capsule,delayed release(DR/EC) 20 mg PO DAILY folic acid 1 mg tablet 1 mg PO DAILY risperidone 1 mg tablet 1 mg PO BID escitalopram oxalate 20 mg tablet 20 mg PO DAILY Xifaxan 550 mg tablet 550 mg PO BID Changed potassium chloride 20 mEq tablet extended release 20 meq PO BID 30 Days Qty: 60 0RF Discontinued bumetanide 2 mg tablet 2 mg PO DAILY amlodipine 5 mg tablet 5 mg PO DAILY furosemide 80 mg tablet 80 mg PO DAILY bumetanide 1 mg tablet 1 mg PO DAILY Discharge Orders: Discharge Order (Routine); Ordered 07/15/24 Ordered By: Joe Varghese Referrals: Jomar Cruz MD [Physician] - 1 month (chf) Discharge Diet: Cardiac Discharge Activity: Resume usual activity Patient Instructions: Opioid Safety Activity Restrictions/Additional Instructions: - If you have worsening shortness of breath please go to the emergency room -Please take lactulose as prescribed -30 g every 8 hours, you can decrease the dose every 2 days such as decreasing to twice daily and then to once daily, so that you have 2-3 soft bowel movements a day -If you have worsening confusion please go to the emergency room -If you develop fevers, chills, abdominal pain please come back to the emergency room -Please follow-up with your GI doctor in [place] in 1 month -Please abstain from alcohol consumption -Patient did receive morphine while he was in the hospital Discharge Attestations Time Spent in Discharge Care*: greater than 30 min Quality Metrics Clinical Quality Measures [ No reported AMI, CVA or VTE this stay] Coding Level of Care Code 73897 Total time (in minutes) for Discharge: 45 Diagnoses Acute hepatic encephalopathy K76.82 Alcoholic cirrhosis of liver K70.30 Bilateral lower extremity edema R60.0 Constipation K59.00
--- NOTE | 2024-07-15 12:24 | PC.NURSE ---
[facility], pt wanted to wait downstairs. they will come get him.
== END 2024-07-15 19:00 | disposition home or self-care (01) | DRG 441 ==
LOC: ER 18:09 → ER IP 20:18 → MEDSURG 07-13 00:22
PROVIDERS: Admitting Provider Family Medicine; Emergency Provider Family Medicine; PCP Nurse Practitioner Family; Visit Provider Family Medicine
DX: K76.82 Hepatic encephalopathy (principal); I50.33 Acute on chronic diastolic (congestive) heart failure; D64.9 Anemia, unspecified; D69.6 Thrombocytopenia, unspecified; K70.30 Alcoholic cirrhosis of liver without ascites; K59.00 Constipation, unspecified; Z87.19 Personal history of other diseases of the digestive system; Z79.899 Other long term (current) drug therapy
CPT/HCPCS: 36415; 70450; 71045; 74176; 80053; 80061; 81001; 82140; 83036; 83605; 83690; 83880; 84145; 84443; 84484; 85025; 85610; 86140; 87040; 93005; 93306; 93970; 97116; 97161; 97165; 99285; J0696; J1940; J2270; J2405; J2470; J9999

== ENCOUNTER 2024-07-18 21:21 | Emergency (ER) | payer MEDICAID, SELFPAY ==
[2024-07-18 21:41] VITALS: BP 147/81; PULSE 76; RESP 18; TEMP 36.9; O2SAT 95
--- NOTE | 2024-07-18 22:22 | XRR_ITS ---
PROCEDURE INFORMATION: Exam: XR Abdomen Exam date and time: 07/18/2024 10:28 PM Age: 44 years old Clinical indication: Abdominal pain; Periumbilical TECHNIQUE: Imaging protocol: Radiologic exam of the abdomen. Views: 2 Views. Upright and supine views. COMPARISON: CT abdomen pelvis wo con [id number] 07/12/2024 7:05 PM FINDINGS: Lungs: No focal consolidation or evidence of pulmonary edema. Heart/Mediastinum: Stable cardiomediastinal silhouette. Gastrointestinal tract: Redundant gas-filled sigmoid colon. No bowel dilation. Intraperitoneal space: Normal. No free air. Organs: Cholecystectomy clips. Vasculature: Tip stent overlies the right upper quadrant. Bones/joints: Unremarkable for age. XR/XR acute abdomen series [id number] IMPRESSION: No acute findings. CT could be considered further evaluation if warranted.
[2024-07-18 23:22] VITALS: BP 150/73; PULSE 75; O2SAT 95
[2024-07-18 23:27] LABS: Basophils % 0.6 %; Eosinophils # 0.1 10^3/uL (0.0-0.8); Eosinophils % 2.7 %; Hematocrit 26.6 % (37-53); Lymphocytes # 1.5 10^3/uL (0.8-4.8); Lymphocytes % 28.5 %; Mean Corpuscular HGB Conc 31.6 g/dL (30-55); Mean Corpuscular Hemoglobin 28.2 pg (27-33); Mean Corpuscular Volume 89.3 fl (82-101); Mean Platelet Volume 10.9 fL (7.4-10.4); Monocytes # 0.8 10^3/uL (0.2-0.9); Monocytes % 14.9 %; Neutrophils # 2.74 10^3/uL (1.8-7.7); Neutrophils % 53.1 %; Nucleated Red Blood Cells % 0 %; Platelet Count 65 10^3/cmm (157-399); Red Blood Count 2.98 10^6/uL (3.85-5.65); Red Cell Distribution Width 18.7 % (12.1-15.1); White Blood Count 5.16 10^3/uL (3.29-11.43)
[2024-07-18] MEDS: HYDROmorphone 0.5 MG/0.5 ML INJ IVP (23:28)
[2024-07-18] MEDS: ondansetron 2 mg/ML SDV 2 mL 4 MG IVP (23:28)
[2024-07-18 23:38] LABS: INR 1.36 (0.8-1.2)
[2024-07-18 23:40] LABS: Alanine Aminotransferase 17 U/L (0-41); Albumin Level 2.5 g/dL (3.5-5.2); Alkaline Phosphatase 125 U/L (40-130); Anion Gap 12.2 (5-19); Blood Urea Nitrogen 10 mg/dL (6-20); Calcium 7.9 mg/dL (8.5-10.5); Carbon Dioxide 20 mmol/L (22-29); Chloride 103 mmol/L (98-107); Creatinine Clr Calc Pharmacy 198.8438; Globulin 2.8 g/dL (1.3-4.6); Glomerular Filtration Rate 123.1 mL/min (90-130); Lipase 91 U/L (13-60); Potassium 3.2 mmol/L (3.5-5.1); Sodium 132 mmol/L (136-145); Total Bilirubin 1.3 mg/dL (0.15-1.2); Total Protein 5.3 g/dL (6.6-8.7)
[2024-07-19 00:03] LABS: Aspartate Amino Transferase 38 U/L (0-40); Glucose 96 mg/dL (65-115); Osmolality Calculated 273 mOsm/kg (285-295)
--- NOTE | 2024-07-19 00:14 | W.ED.PSYCHS ---
HPI - Psych General: Chief Complaint: Psychiatric Symptoms Stated Complaint: mhe Time Seen by Provider: 07/18/24 21:51 History of Present Illness: This patient is a 44-year-old white male who states he is here staying at a [facility] program for rehab. Patient is an alcoholic. He had been sober for 30 days but states he made a mistake tonight went to [facility] and picked up some beer started drinking. Caretakers brought him into the emergency department for evaluation. Patient has been having moderate amount of abdominal pain. He states he does have stage III cirrhosis. He is taking lactulose twice per day. Related Data Home Medications ?Medication ?Instructions ?Recorded ?Confirmed carvedilol 3.125 mg tablet 3.125 mg PO BID 07/12/24 07/12/24 citalopram 20 mg tablet 20 mg PO DAILY 07/12/24 07/12/24 escitalopram oxalate 20 mg tablet 20 mg PO DAILY 07/12/24 07/12/24 ferrous sulfate 325 mg (65 mg 325 mg PO DAILY 07/12/24 07/12/24 iron) tablet (FeroSul) folic acid 1 mg tablet 1 mg PO DAILY 07/12/24 07/12/24 gabapentin 300 mg capsule 600 mg PO TID 07/12/24 07/12/24 magnesium oxide 400 mg (241.3 mg 400 mg PO BID 07/12/24 07/12/24 magnesium) tablet multivitamin 1 tab PO DAILY 07/12/24 07/12/24 naltrexone 50 mg tablet 50 mg PO DAILY 07/12/24 07/12/24 nifedipine 30 mg tablet,extended 30 mg PO DAILY 07/12/24 07/12/24 release 24 hr omeprazole 20 mg capsule,delayed 20 mg PO DAILY 07/12/24 07/12/24 release pantoprazole 40 mg tablet,delayed 40 mg PO DAILY 07/12/24 07/12/24 release rifaximin 550 mg tablet (Xifaxan) 550 mg PO BID 07/12/24 07/12/24 risperidone 1 mg tablet 1 mg PO BID 07/12/24 07/12/24 spironolactone 25 mg tablet 100 mg PO DAILY 07/12/24 07/12/24 sucralfate 1 gram tablet 1 g PO BID 07/12/24 07/12/24 thiamine HCl (vitamin B1) 100 mg 100 mg PO DAILY 07/12/24 07/12/24 tablet trazodone 100 mg tablet 100 mg PO QPM 07/12/24 07/12/24 zinc sulfate 50 mg zinc (220 mg) 50 mg PO DAILY 07/12/24 07/12/24 tablet Previous Rx's ?Medication ?Instructions ?Recorded furosemide 40 mg tablet (Lasix) 40 mg PO BID 30 days #60 tabs 07/15/24 lactulose 10 gram/15 mL oral 30 g (45 mL) PO TID 30 days #4,050 07/15/24 solution mL potassium chloride 20 mEq 20 meq PO BID 30 days #60 tabs 07/15/24 tablet,extended release Allergies Allergy/AdvReac Type Severity Reaction Status Date / Time No Known Allergies Allergy Verified 07/12/24 16:09 Review of Systems General: Reports: 10 or more systems reviewed and unremarkable except in HPI and below GI: Reports: abdominal pain PFSH ED PFSH: Medical History (Updated 07/19/24 @ 00:13 by Abdoul Polo MD) History of esophageal varices History of alcoholism Surgical History (Updated 07/12/24 @ 18:25 by Joe Varghese MD) History of esophagogastroduodenoscopy (EGD) Family History (Updated 07/12/24 @ 18:26 by Joe Varghese MD) Mother Chronic kidney disease (CKD) Father Chronic kidney disease (CKD) Social History (Updated 07/12/24 @ 18:26 by Joe Varghese MD) Smoking and tobacco/nicotine status: never used tobacco/nicotine Alcohol intake: former Substance/Drug Use: never Physical Exam Const: COMMON NORMALS: no acute distress, patient oriented x3 and no limitations GENERAL APPEARANCE: cooperative and comfortable HENMT: COMMON NORMALS: normocephalic, atraumatic, Normal nasal mucous membranes and turbinates present, moist oral mucous membranes and oropharynx normal HEAD & SCALP: normal to inspection, normocephalic and atraumatic FACE & SINUS: normal facial exam NOSE: Normal nasal mucous membranes and turbinates present Eye: COMMON NORMALS: Equal, round and reactive pupils present, EOMs intact bilaterally and conjunctivae normal GENERAL EYE: appearance normal, both eyes and all related structures CONJUNCTIVA: Yes conjunctivae normal PUPIL: Yes Equal, round and reactive pupils present Neck/C-Spine: COMMON NORMALS: supple and no JVD Chest: COMMONS NORMALS: normal inspection of the chest Resp: COMMON NORMALS: normal respiratory effort and clear to auscultation bilaterally AUSCULTATION: clear to auscultation bilaterally Cardio: COMMON NORMALS: no JVD, regular rate, regular rhythm, No gallops present (Cardio), No murmurs present (Cardio) and No rub (Cardio) RATE: regular rate RHYTHM: regular rhythm GI: COMMON NORMALS: Normal to inspection, nondistended, normoactive bowel sounds present, Soft to palpation and non-tender AUSCULTATION: Yes normoactive bowel sounds PALPATION: Yes Soft to palpation : COMMON NORMALS: Yes no CVA tenderness BLADDER/KIDNEY EXAM: Yes no CVA tenderness Back/Pelvis: COMMON NORMALS: no CVA tenderness and thoracic and lumbar spine normal to inspection Extremity: COMMON NORMALS: normal to inspection Neuro: COMMON NORMALS: patient oriented x3 and CN's II-XII intact bilaterally Psych: COMMON NORMALS: mental status grossly normal, Normal thought process present and cooperative THOUGHT PROCESS: Normal thought process present Skin: COMMON NORMALS: no rashes or lesions noted, turgor normal and no jaundice GENERAL SKIN EXAM: no rashes or lesions noted and turgor normal Course Vital Signs: Vital signs: Vital Signs Temperature 98.5 F 07/18/24 21:41 Pulse Rate 75 07/18/24 23:22 Respiratory Rate 18 07/18/24 21:41 Blood Pressure 150/73 07/18/24 23:22 Pulse Oximetry 95 07/18/24 23:22 Oxygen Delivery Me thod Room Air 07/18/24 21:41 MDM - Psych Medical Decision Making CBC reveals a hemoglobin of 8.4 which is stable, platelet count of 65 which is stable. INR 1.36. CMP revealed a total bili of 1.3. Lipase 91. Patient was given 0.5 mg of Dilaudid for his pain as well as 4 mg of Zofran. Abdominal films reveal moderate constipation. Think this is likely causing his discomfort. I recommended he increase the lactulose to 3 times per day. Stop drinking alcohol. Follow-up with his physicians as scheduled. He was discharged in stable condition. Lab Data 07/18/24 23:11 07/18/24 23:11 Radiology Impressions Chest/Abdomen X-ray 07/18/24 22:22 IMPRESSION: No acute findings. CT could be considered further evaluation if warranted. Laboratory Results WBC 5.16 10^3/uL (3.29-11.43) 07/18/24 23:11 RBC 2.98 10^6/uL (3.85-5.65) L 07/18/24 23:11 Hgb 8.40 g/dL (11.27-16.99) L 07/18/24 23:11 Hct 26.6 % (37-53) L 07/18/24 23:11 MCV 89.3 fl (82-101) 07/18/24 23:11 MCH 28.2 pg (27-33) 07/18/24 23:11 MCHC 31.6 g/dL (30-55) 07/18/24 23:11 RDW 18.7 % (12.1-15.1) H 07/18/24 23:11 Plt Count 65 10^3/cmm (157-399) L 07/18/24 23:11 MPV 10.9 fL (7.4-10.4) H 07/18/24 23:11 Neut % (Auto) 53.1 % 07/18/24 23:11 Lymph % (Auto) 28.5 % 07/18/24 23:11 [place]ern % (Auto) 14.9 % 07/18/24 23:11 Eos % (Auto) 2.7 % 07/18/24 23:11 Baso % (Auto) 0.6 % 07/18/24 23:11 Neut # (Auto) 2.74 10^3/uL (1.8-7.7) 07/18/24 23:11 Lymph # (Auto) 1.5 10^3/uL (0.8-4.8) 07/18/24 23:11 Kern # (Auto) 0.8 10^3/uL (0.2-0.9) 07/18/24 23:11 Eos # (Auto) 0.1 10^3/uL (0.0-0.8) 07/18/24 23:11 Baso # (Auto) 0.0 10^3/uL (0.0-0.1) 07/18/24 23:11 Nucleated RBC % (auto) 0 % 07/18/24 23:11 Nucleated RBCs # 0.0 /100WBC 07/18/24 23:11 PT 17.70 SECONDS (12.1-14.9) H 07/18/24 23:11 INR 1.36 (0.8-1.2) H 07/18/24 23:11 Sodium 132 mmol/L (136-145) L 07/18/24 23:11 Potassium 3.2 mmol/L (3.5-5.1) L 07/18/24 23:11 Chloride 103 mmol/L (98-107) 07/18/24 23:11 Carbon Dioxide 20 mmol/L (22-29) L 07/18/24 23:11 Anion Gap 12.2 (5-19) 07/18/24 23:11 BUN 10 mg/dL (6-20) 07/18/24 23:11 Creatinine 0.7 mg/dL (0.7-1.2) 07/18/24 23:11 GFR Calculation 123.1 mL/min (90-130) 07/18/24 23:11 Glucose 96 mg/dL (65-115) 07/18/24 23:11 Calculated Osmolality 273 mOsm/kg (285-295) L 07/18/24 23:11 Calcium 7.9 mg/dL (8.5-10.5) L 07/18/24 23:11 Total Bilirubin 1.3 mg/dL (0.15-1.2) H 07/18/24 23:11 AST 38 U/L (0-40) 07/18/24 23:11 ALT 17 U/L (0-41) 07/18/24 23:11 Alkaline Phosphatase 125 U/L (40-130) 07/18/24 23:11 Total Protein 5.3 g/dL (6.6-8.7) L 07/18/24 23:11 Albumin 2.5 g/dL (3.5-5.2) L 07/18/24 23:11 Globulin 2.8 g/dL (1.3-4.6) 07/18/24 23:11 Lipase 91 U/L (13-60) H 07/18/24 23:11 All radiology interpretation(s) finalized by discharge Discharge Plan Discharge Patient Disposition: Home Clinical Impression: Alcoholic cirrhosis of liver Qualifiers: Ascites presence: unspecified Qualified Code(s): K70.30 - Alcoholic cirrhosis of liver without ascites Condition: Stable Prescriptions: No Action multivitamin Tablet 1 tab PO DAILY nifedipine 30 mg tablet extended release 24hr 30 mg PO DAILY sucralfate 1 gram tablet 1 g PO BID naltrexone 50 mg tablet 50 mg PO DAILY thiamine HCl (vitamin B1) 100 mg tablet 100 mg PO DAILY spironolactone 25 mg tablet 100 mg PO DAILY carvedilol 3.125 mg tablet 3.125 mg PO BID zinc sulfate 50 mg zinc (220 mg) tablet 50 mg PO DAILY citalopram 20 mg tablet 20 mg PO DAILY magnesium oxide 400 mg (241.3 mg magnesium) tablet 400 mg PO BID trazodone 100 mg tablet 100 mg PO QPM pantoprazole 40 mg tablet,delayed release (DR/EC) 40 mg PO DAILY ferrous sulfate [FeroSul] 325 mg (65 mg iron) tablet 325 mg PO DAILY gabapentin 300 mg capsule 600 mg PO TID omeprazole 20 mg capsule,delayed release(DR/EC) 20 mg PO DAILY folic acid 1 mg tablet 1 mg PO DAILY risperidone 1 mg tablet 1 mg PO BID escitalopram oxalate 20 mg tablet 20 mg PO DAILY Xifaxan 550 mg tablet 550 mg PO BID furosemide [Lasix] 40 mg tablet 40 mg PO BID 30 Days Qty: 60 0RF lactulose 10 gram/15 mL solution 30 g PO TID 30 Days Qty: 4050 0RF Rx Instructions: can adjust dose every 2 days, by decreasing to twice daily or then to once daily, to achieve 2-3 soft bowel movements a day potassium chloride 20 mEq tablet extended release 20 meq PO BID 30 Days Qty: 60 0RF Discharge Orders: Discharge ED (Routine); Ordered 07/19/24 Ordered By: Abdoul Polo Referrals: Tea Rodrigues FNP [Primary Care Provider] - Patient Instructions: Cirrhosis of the Liver (ED) Activity Restrictions/Additional Instructions: No more drinking alcohol. Follow-up with your physicians as scheduled. Print Language: Japanese Coding Level of Care Code ED [employer]ath[employer] Keeper for Gaurav Maradiaga
[2024-07-19 00:32] VITALS: BP 131/69; PULSE 67; O2SAT 96
[2024-07-19 00:33] VITALS: BP 131/69; PULSE 67; O2SAT 96
== END 2024-07-19 00:48 | disposition home or self-care (01) ==
PROVIDERS: Emergency Provider Emergency Medicine; PCP Nurse Practitioner Family
DX: K70.30 Alcoholic cirrhosis of liver without ascites (principal)
CPT/HCPCS: 36415; 74022; 80053; 83690; 85025; 85610; 96374; 96375; 99284; J1171; J2405